=== PATIENT | female | born 1955 | race African-American/Black ===

== ENCOUNTER 2019-07-29 12:50 | Emergency (ER) | payer OTHER ==
[~2019-07-29] VITALS: Ht 172.7 cm; Wt 127.0 kg
[2019-07-29] MEDS ORDERED: CIPRO500 MG PO (15:36)
== END 2019-07-29 16:18 | disposition home or self-care (01) ==
LOC: ER 12:50
DX: L97.829 Non-pressure chronic ulcer of other part of left lower leg with unspecified severity (principal)

== ENCOUNTER 2019-09-08 13:46 | Emergency (ER) | payer OTHER ==
[~2019-09-08] VITALS: Ht 172.7 cm; Wt 149.7 kg
[~2019-09-08 13:46] MED LIST: CIPRO500 MG PO
[2019-09-08] MEDS ORDERED: SYNTHROID175 MCG PO (13:53)
[2019-09-08] MEDS ORDERED: HYDROCHLOROTHIA25 MG PO (13:54)
[2019-09-08] MEDS ORDERED: LOSARTAN POTAS100 MG PO (13:54)
== END 2019-09-08 21:17 | disposition left against medical advice (07) ==
LOC: ER 13:46
DX: L03.116 Cellulitis of left lower limb (principal)

== ENCOUNTER 2019-10-22 11:37 | Outpatient (CLI) | payer OTHER ==
[~2019-10-22 11:37] MED LIST changes: +HYDROCHLOROTHIA25 MG PO; +LOSARTAN POTAS100 MG PO; +SYNTHROID175 MCG PO
== END 2019-10-24 12:47 | disposition home or self-care (01) ==
LOC: SONOGRAMA 11:37
DX: R22.42 Localized swelling, mass and lump, left lower limb (principal); I82.813 Embolism and thrombosis of superficial veins of lower extremities, bilateral

== ENCOUNTER 2020-01-10 10:54 | Outpatient (CLI) | payer OTHER | END 2020-01-10 10:59 | disposition home or self-care (01) | LOC: NUCLEAR 10:54 | DX: I82.402 Acute embolism and thrombosis of unspecified deep veins of left lower extremity (principal); I73.9 Peripheral vascular disease, unspecified; I87.2 Venous insufficiency (chronic) (peripheral) ==